=== PATIENT | male | born 1965 | race African-American/Black ===

== ENCOUNTER 2023-03-12 13:28 | Emergency (ER) | payer OTHER ==
[2023-03-12 13:35] VITALS: BP 147/79; PULSE 77; RESP 18; TEMP 97.9; BMI 28.8
[2023-03-12] MEDS ORDERED: SODIUM CHLORIDE 0.9% 500 ML INFUS.BAG IV ONE (14:30)
[2023-03-12] MEDS ORDERED: ACETAMINOPHEN 1000 MG/100 ML BAG IVPB ONE (14:30)
[2023-03-12] MEDS ORDERED: ACETAMINOPHEN INJECTION 100 ML IVPB ONE (14:36)
[2023-03-12 15:03] LABS: VENOUS O2 SATURATION 34.1 % (70-80); VENOUS PCO2 47.7 mmHg (38-52); VENOUS PH 7.341 (7.310-7.410)
[2023-03-12 15:07] LABS: BASO % 0.3 % (0-2.0); EOS % 2.5 % (0-4.5); HEMATOCRIT 45.4 % (35.4-49); HEMOGLOBIN 14.6 GM/dL (11.7-16.9); LYMPH % 47.9 % (8-40); MCH 28.4 pg (25.7-33.7); MCHC 32.1 g/dl (32.0-35.9); MEAN CELL VOLUME 88.7 fl (80-96); MEAN PLT VOLUME 8.3 fl (7.5-11.1); MONO % 8.6 % (3.8-10.2); NEUT % 40.7 % (42.8-82.8); PLATELET COUNT 295 10^3/uL (134-434); RBC 5.12 M/mm3 (4.00-5.60); RDW 13.4 % (11.9-15.9); WHITE BLOOD COUNT 6.2 K/mm3 (4.0-10.0)
[2023-03-12 15:08] LABS: EPI CELLS 2 /uL (0-25.1); HYALINE CASTS 0 /uL (0-3.1); PH,URINE 5.5 (5.0-8.0); URINE APPEARANCE CLEAR; URINE BACTERIA 4 /uL (0-1359); URINE BILIRUBIN NEGATIVE (NEGATIVE); URINE COLOR YELLOW; URINE GLUCOSE (UA) NEGATIVE (NEGATIVE); URINE KETONE TRACE (NEGATIVE); URINE LEUK ESTERASE NEGATIVE (NEGATIVE); URINE NITRITE NEGATIVE (NEGATIVE); URINE PROTEIN 2+ (NEGATIVE); URINE RBC 10 /uL (0-23.9); URINE WBC 5 /uL (0-25.8)
[2023-03-12 15:32] LABS: POTASSIUM 4.1 mmol/L (3.5-5.1)
[2023-03-12 15:34] LABS: CALCIUM 9.9 mg/dL (8.5-10.1)
[2023-03-12 15:35] LABS: ALBUMIN 4.3 g/dl (3.4-5.0); BLOOD UREA NITROGEN 14.9 mg/dL (7-18)
[2023-03-12 15:38] LABS: CREATININE 1.1 mg/dL (0.55-1.3)
[2023-03-12 15:39] LABS: BILIRUBIN,TOTAL 0.5 mg/dL (0.2-1); TOT PROT 8.2 g/dl (6.4-8.2)
[2023-03-12] MEDS ORDERED: KETOROLAC TROMETHAMINE 30 MG/1 ML VIAL IVPUSH ONE (16:20)
[2023-03-12] MEDS ORDERED: KETOROLAC TROMETHAMINE 15 MG/ML VIAL ONE (16:29)
== END 2023-03-12 18:05 | disposition home or self-care (01) ==
LOC: JERFT 13:28 → JER 13:28 → JERFT 18:05
PROC: 3E033NZ Introduction of Analgesics, Hypnotics, Sedatives into Peripheral Vein, Percutaneous Approach (ICD-10-PCS; principal; 2023-03-12)
PROC: 3E0333Z Introduction of Anti-inflammatory into Peripheral Vein, Percutaneous Approach (ICD-10-PCS; 2023-03-12)
DX: R10.31 Right lower quadrant pain (principal); R10.32 Left lower quadrant pain; M54.50 Low back pain, unspecified
CPT/HCPCS: 36415; 72131-TC; 74176-TC; 80053; 81003; 82010; 82803; 85025; 87086; 93005; 93010; 96374; 96375; 99285-25

== ENCOUNTER 2023-10-12 19:23 | Emergency (ER) | payer OTHER ==
[2023-10-12 19:29] VITALS: BP 164/85; PULSE 84; RESP 17; TEMP 98.3; BMI 26.5
[2023-10-12] MEDS ORDERED: ALBUTEROL SO4 2.5/IPRATROPIUM 0.5 INH SOL 3 ML VIAL.NEB. NEB ONE (20:55)
[2023-10-12] MEDS ORDERED: AZITHROMYCIN 500 MG TABLET ONE (20:56)
[2023-10-12] MEDS: AZITHROMYCIN 500 MG TABLET PO ONE (21:02)
[2023-10-12] MEDS: ALBUTEROL SO4 2.5/IPRATROPIUM 0.5 INH SOL 3 ML VIAL.NEB. NEB ONE (21:02)
== END 2023-10-12 21:22 | disposition home or self-care (01) ==
LOC: JERFT 19:23
PROC: 3E0F7GC Introduction of Other Therapeutic Substance into Respiratory Tract, Via Natural or Artificial Opening (ICD-10-PCS; principal; 2023-10-12)
DX: R05.9 Cough, unspecified (principal); R09.81 Nasal congestion; R09.89 Other specified symptoms and signs involving the circulatory and respiratory systems; J40 Bronchitis, not specified as acute or chronic; U07.1 COVID-19
CPT/HCPCS: 0241U-QW; 71046-TC-FY; 99284-25

== ENCOUNTER 2023-10-13 15:39 | Emergency (ER) | payer OTHER ==
[2023-10-13 15:51] VITALS: PULSE 110; RESP 18; BMI 28.1
[2023-10-13] MEDS ORDERED: ACETAMINOPHEN 500 MG TABLET (FP) ONE (17:12)
[2023-10-13] MEDS ORDERED: ALBUTEROL SO4 2.5/IPRATROPIUM 0.5 INH SOL 3 ML VIAL.NEB. NEB ONE ×2 (17:12→18:09)
[2023-10-13] MEDS: ALBUTEROL SO4 2.5/IPRATROPIUM 0.5 INH SOL 3 ML VIAL.NEB. NEB ONE ×2 (17:34→19:31)
[2023-10-13] MEDS: ACETAMINOPHEN 500 MG TABLET (FP) PO ONE (17:34)
[2023-10-13 17:45] LABS: BASO % 0.9 % (0-2.0); EOS % 0.9 % (0-4.5); HEMATOCRIT 39.6 % (35.4-49); HEMOGLOBIN 13.4 GM/dL (11.7-16.9); LYMPH % 15.8 % (8-40); MCH 29.9 pg (25.7-33.7); MCHC 33.8 g/dl (32.0-35.9); MEAN CELL VOLUME 88.5 fl (80-96); MEAN PLT VOLUME 7.5 fl (7.5-11.1); NEUT % 72.4 % (42.8-82.8); PLATELET COUNT 296 10^3/uL (134-434); RBC 4.47 M/mm3 (4.00-5.60); RDW 13.3 % (11.9-15.9)
[2023-10-13 18:11] LABS: POTASSIUM 4.1 mmol/L (3.5-5.1)
[2023-10-13 18:23] LABS: CALCIUM 10.4 mg/dL (8.5-10.1)
[2023-10-13 19:24] LABS: ALBUMIN 3.9 g/dl (3.4-5.0); BILIRUBIN,TOTAL 0.4 mg/dL (0.2-1); BLOOD UREA NITROGEN 11.4 mg/dL (7-18); CREATININE 1.2 mg/dL (0.55-1.3); TOT PROT 7.8 g/dl (6.4-8.2)
[2023-10-13] MEDS ORDERED: predniSONE 20 MG TABLET (UD) ONE (19:34)
[2023-10-13] MEDS: predniSONE 20 MG TABLET (UD) PO ONE (19:56)
[2023-10-13 19:58] VITALS: BP 140/80; TEMP 99.1
== END 2023-10-13 20:03 | disposition home or self-care (01) ==
LOC: JER 15:39
PROC: 3E0F7GC Introduction of Other Therapeutic Substance into Respiratory Tract, Via Natural or Artificial Opening (ICD-10-PCS; principal; 2023-10-13)
PROC: 3E0F7GC Introduction of Other Therapeutic Substance into Respiratory Tract, Via Natural or Artificial Opening (ICD-10-PCS; 2023-10-13)
DX: U07.1 COVID-19 (principal); J45.20 Mild intermittent asthma, uncomplicated; R07.89 Other chest pain; R06.02 Shortness of breath; R05.9 Cough, unspecified; R50.9 Fever, unspecified; R00.0 Tachycardia, unspecified
CPT/HCPCS: 36415; 80053; 83880; 85025; 85379; 93005; 93010; 99284-25

== ENCOUNTER 2023-12-04 02:04 | Emergency (ER) | payer OTHER ==
[2023-12-04 02:30] VITALS: BP 145/96; PULSE 84; RESP 20; TEMP 97.6; BMI 26.5
[2023-12-04] MEDS ORDERED: LIDOCAINE 4% PATCH TP ONE (02:30)
[2023-12-04] MEDS ORDERED: KETOROLAC TROMETHAMINE 30 MG/1 ML VIAL ONE (02:30)
[2023-12-04] MEDS ORDERED: ACETAMINOPHEN 500 MG TABLET (FP) ONE (02:30)
[2023-12-04] MEDS: LIDOCAINE 4% PATCH TP ONE (02:36)
[2023-12-04] MEDS: KETOROLAC TROMETHAMINE 30 MG/1 ML VIAL IM ONE (02:36)
[2023-12-04] MEDS: ACETAMINOPHEN 500 MG TABLET (FP) PO ONE (02:36)
[2023-12-04] MEDS: oxyCODONE HCL 5 MG TABLET PO ONE (02:42)
[2023-12-04] MEDS ORDERED: LIDOCAINE PATCH REMOVAL MC SCH (22:00)
== END 2023-12-04 03:52 | disposition home or self-care (01) ==
LOC: JER 02:04
PROC: 3E0233Z Introduction of Anti-inflammatory into Muscle, Percutaneous Approach (ICD-10-PCS; principal; 2023-12-04)
DX: M25.511 Pain in right shoulder (principal); G89.29 Other chronic pain
CPT/HCPCS: 73030-TC-RT-FY; 93005; 93010; 99284-25

== ENCOUNTER 2024-05-14 12:08 | Inpatient (IN) | payer OTHER ==
[2024-05-14 12:15] VITALS: BMI 27.2
[2024-05-14] MEDS: SODIUM CHLORIDE 0.9% 500 ML INFUS.BAG IV ONE ×2 (13:48→17:24)
[2024-05-14] MEDS ORDERED: ONDANSETRON *ODT* 4 MG TABLET ONE (14:07)
[2024-05-14] MEDS ORDERED: ACETAMINOPHEN 500 MG TABLET (FP) ONE (14:07)
[2024-05-14] MEDS: ACETAMINOPHEN 500 MG TABLET (FP) PO ONE (14:10)
[2024-05-14] MEDS: ONDANSETRON *ODT* 4 MG TABLET SL ONE (14:10)
[2024-05-14 14:15] LABS: VENOUS BASE EXCESS -1.7 mmol/L (-2-2); VENOUS O2 SATURATION 85.2 % (70-80); VENOUS PCO2 31.8 mmHg (38-52); VENOUS PH 7.443 (7.310-7.410)
[2024-05-14 14:17] LABS: BASO % 1.1 % (0-2.0); EOS % 1.1 % (0-4.5); HEMATOCRIT 45.2 % (35.4-49); HEMOGLOBIN 15.3 GM/dL (11.7-16.9); LYMPH % 8.4 % (8-40); MCH 29.7 pg (25.7-33.7); MCHC 33.8 g/dl (32.0-35.9); MEAN CELL VOLUME 87.8 fl (80-96); MEAN PLT VOLUME 8.5 fl (7.5-11.1); MONO % 10.7 % (3.8-10.2); NEUT % 78.7 % (42.8-82.8); PLATELET COUNT 224 10^3/uL (134-434); RBC 5.15 M/mm3 (4.00-5.60); RDW 13.4 % (11.9-15.9); WHITE BLOOD COUNT 6.2 K/mm3 (4.0-10.0)
[2024-05-14 14:52] LABS: POTASSIUM 4.1 mmol/L (3.5-5.1)
[2024-05-14 14:55] LABS: CALCIUM 9.9 mg/dL (8.5-10.1)
[2024-05-14 14:56] LABS: ALBUMIN 4.2 g/dl (3.4-5.0); BLOOD UREA NITROGEN 12.7 mg/dL (7-18)
[2024-05-14 14:59] LABS: CREATININE 1.2 mg/dL (0.55-1.3)
[2024-05-14 15:01] LABS: BILIRUBIN,TOTAL 0.4 mg/dL (0.2-1)
[2024-05-14] MEDS ORDERED: KETOROLAC TROMETHAMINE 15 MG/ML VIAL ONE (15:05)
[2024-05-14] MEDS: KETOROLAC TROMETHAMINE 15 MG/ML VIAL IVPUSH ONE (15:12)
[2024-05-14] MEDS ORDERED: OSELTAMIVIR PHOSPHATE 75 MG CAPSULE ONE (15:14)
[2024-05-14] MEDS: OSELTAMIVIR PHOSPHATE 75 MG CAPSULE PO ONE (15:16)
[2024-05-14 15:35] LABS: HIV INTERPRETATION NEGATIVE (NEGATIVE)
[2024-05-14] MEDS ORDERED: ACETAMINOPHEN INJECTION 100 ML ONE (23:56)
[2024-05-15] MEDS: ACETAMINOPHEN 325 MG TABLET (FP) PO PRN (00:27)
[2024-05-15 05:49] VITALS: TEMP 99
[2024-05-15 08:46] LABS: BASO % 0.8 % (0-2.0); EOS % 0.1 % (0-4.5); HEMATOCRIT 42.2 % (35.4-49); HEMOGLOBIN 13.8 GM/dL (11.7-16.9); LYMPH % 17.9 % (8-40); MCH 29.5 pg (25.7-33.7); MCHC 32.7 g/dl (32.0-35.9); MEAN PLT VOLUME 8.8 fl (7.5-11.1); MONO % 13.8 % (3.8-10.2); NEUT % 67.4 % (42.8-82.8); PLATELET COUNT 191 10^3/uL (134-434); RBC 4.69 M/mm3 (4.00-5.60); RDW 13.2 % (11.9-15.9); WHITE BLOOD COUNT 5.2 K/mm3 (4.0-10.0)
[2024-05-15 09:12] LABS: ALBUMIN 3.7 g/dl (3.4-5.0); BLOOD UREA NITROGEN 17.5 mg/dL (7-18); CALCIUM 8.9 mg/dL (8.5-10.1); MAGNESIUM 1.6 mg/dL (1.8-2.4)
[2024-05-15 09:15] LABS: BILIRUBIN,TOTAL 0.5 mg/dL (0.2-1); CREATININE 1.4 mg/dL (0.55-1.3); PHOSPHOROUS 3.1 mg/dL (2.5-4.9)
[2024-05-15] MEDS: HYDROCHLOROTHIAZIDE 12.5 MG CAPSULE (FP) PO SCH (11:00)
[2024-05-15] MEDS: OSELTAMIVIR PHOSPHATE 75 MG CAPSULE PO SCH (11:41)
[2024-05-15] MEDS: ENOXAPARIN NA (PORCINE) 40 MG/0.4 ML DISP.SYRIN SQ SCH (11:41)
[2024-05-15 18:21] VITALS: BP 146/90; PULSE 78; RESP 16
[2024-05-15] MEDS ORDERED: LISINOPRIL 20 MG TABLET PO SCH (22:00)
== END 2024-05-15 19:24 | disposition home or self-care (01) | DRG 113 ==
LOC: JER 12:08 → JERBED 19:53 → OBSVTOIN 20:52
PROVIDERS: ADMIT Internal Medicine; ATTEND Registered Nurse
DX: J10.1 Influenza due to other identified influenza virus with other respiratory manifestations (principal); E87.3 Alkalosis; E11.65 Type 2 diabetes mellitus with hyperglycemia; I10 Essential (primary) hypertension; R09.89 Other specified symptoms and signs involving the circulatory and respiratory systems; R51.9 Headache, unspecified; R53.83 Other fatigue
CPT/HCPCS: 0241U-QW; 36415; 71046-TC-FY; 71250-TC; 80053; 82803; 82962; 83036; 83735; 84100; 85025; 86803; 87040; 87389; 93005; 93010; 99285-25; G0378; Q0162